=== PATIENT | male | born 1980 | race Caucasian/White ===

== ENCOUNTER 2025-02-14 11:49 | Outpatient (CLI) | payer MEDICAID, SELFPAY ==
--- NOTE | 2025-02-14 12:05 | CT_ITS ---
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 TECHNIQUE: Contiguous 5 mm axial imaging performed through the chest, abdomen and pelvis with IV contrast, oral contrast has not been provided. Coronal and sagittal reformats chest. Coronal and sagittal reformats through the abdomen and pelvis. All CT scans at [facility] use at least one of these dose optimization techniques: automated exposure control; mA and/or kV adjustment per patient size (includes targeted exams where dose is matched to clinical indication); or iterative reconstruction. CONTRAST: Omnipaque 350; 100 mL IV. DLP: 592.57 mGy.cm COMPARISON: None available. Chest CT: Lungs are clear. No evidence for metastatic disease to the lungs. No pericardial or pleural effusions. Normal size aorta and pulmonary artery. No mediastinal or hilar adenopathy. Extensive collateral circulation along the RIGHT lateral chest is probably due to prior surgery with interruption of the normal vascularity. Bilateral axillary lymph nodes do not appear enlarged. No chest wall mass is identified. No destructive bone process in the chest. No rib lesions. Abdomen CT: This study was performed without oral contrast. Normal appearance of the liver and spleen. Gallbladder is absent. No intrahepatic duct dilatation. Postsurgical changes noted involving the stomach and pancreatic head from prior Whipple procedure. The exact configuration is difficult to identify without oral contrast filling the GI tract. There is no obstruction of the GI tract. The remaining pancreatic body and tail are negative. No adrenal mass. Kidneys are normally enhancing. No renal obstruction. Minimal atherosclerosis aorta. Celiac axis origin from the aorta is not identified. No GI tract obstruction. No appendicitis. There is no colitis. No mesenteric implants. No ascites or adenopathy. Pelvic CT: No free fluid. Urinary bladder is partially distended. No adenopathy. Posterior lumbar fusion at L4-5 with interbody spacer. No lytic or blastic bone lesions. CT/CT chest abdpel w/*[id number] IMPRESSION: 1. No pulmonary metastatic nodules. No pneumonia. 2. No pathologic adenopathy in the chest, abdomen or pelvis. 3. Postsurgical changes in the abdomen consistent with history of Whipple proc edure. 4. No significantly enlarged mesenteric lymph nodes are identified. No mesente sherron implants identified. 5. No ascites. 6. No renal obstruction. 7. Prior cholecystectomy. 8. No subcutaneous skin nodules.
--- NOTE | 2025-02-14 12:05 | CT_ITS ---
WS: [id number] CT NECK WITH CONTRAST HISTORY: PERSONAL HX OF MALIGNANT MELANOMA OF SKIN TECHNIQUE: Contiguous 2 mm axial images are performed through the neck with intravenous contrast. Sagittal and coronal reformats are also submitted. All CT scans at [facility] use at least one of these dose optimization techniques: automated exposure control; mA and/or kV adjustment per patient size (includes targeted exams where dose is matched to clinical indication); or iterative reconstruction. CONTRAST: CONTRAST: Omnipaque 350; 100 mL IV. DLP: 169.78 mGy.cm COMPARISON: None available. Nasopharynx, oropharynx, hypopharynx and larynx are unremarkable. No soft tissue masses or abnormal enhancement. Torus tubarius and fossa of Rosenmuller and parapharyngeal fat are normal. There are bilateral cervical chain indeterminate lymph nodes. These lymph nodes are most significant at level 1 and level 2. Largest lymph node at level 2A measures 10 mm. This is a rounded lymph node with mild increased vascularity. Ovoid lymph node measuring 1.3 cm level 2A on the LEFT. There are additional smaller level 2 and level 3 lymph nodes. RIGHT supraclavicular lymph node 7 mm. LEFT level 1B lymph node 11 mm. Thyroid gland and salivary glands are normally enhancing with no masses. Visualized portions of the skull base demonstrate no abnormalities. Orbits and globes are within normal limits. No soft tissue masses. Moderate mucoperiosteal thickening throughout the maxillary sinuses. Heterogeneous attenuation from inspissated secretions. No air-fluid levels. Orbits and globes are negative. Mastoid air cells are clear. Lung apices are clear. CT/CT neck w con* [id number] IMPRESSION: 1. Indeterminate bilateral cervical chain lymph nodes. These lymph nodes are m easuring just slightly greater than normal and some of these lymph nodes demons trate enhancement and are rounded configuration. Consider PET/CT evaluation. Ne oplastic versus reactive adenopathy. 2. Moderate mucoperiosteal thickening in the maxillary sinuses.
[2025-02-14] MEDS: iohexol 350 mg/mL 500 mL Btl (per mL) IV ×2 (12:52→12:55)
== END 2025-02-14 11:50 | disposition home or self-care (01) ==
PROVIDERS: PCP Physician Assistant; Visit Provider Dermatology
DX: Z85.820 Personal history of malignant melanoma of skin (principal)
CPT/HCPCS: 70491; 71260; 74177; 83615

== ENCOUNTER 2025-03-04 11:36 | Outpatient (CLI) | payer MEDICAID, SELFPAY ==
--- NOTE | 2025-03-04 11:43 | PETR_ITS ---
PROCEDURE INFORMATION: Exam: PET/CT Skull Base to Mid-thigh Exam date and time: 03/04/2025 12:54 PM Age: 44 years old Clinical indication: Localized enlarged lymph nodes in the neck noted on CT neck on 02/14/2025; Distant HX melanoma 18 years ago. LABS AND CLINICAL REPORTS: Glucose: 107 mg/dl Treatment strategy for malignancy (PET staging): Initial Staging (PI) TECHNIQUE: Imaging protocol: Following at least four-hour fasting and following the injection of radiopharmaceutical, low dose CT images were obtained. Then, PET images were obtained. Attenuation corrected images were constructed using the CT scan. Fused images of PET and CT were reviewed. The standardized uptake values (SUV) reported below are maximum values within a region of interest, expressed in gm/ml. Exam includes orbital meatal line to mid-thigh. SUV normalization method: BodyWeight Radiopharmaceutical: 11.21 mCi F-18 FDG (Fluorodeoxyglucose), IV. Time of imaging post radiopharmaceutical administration: 51 minutes Injection site: R AC COMPARISON: CT neck w con* [id number] 02/14/2025 12:52 PM FINDINGS: Brain: On the nondedicated limited brain images there is no abnormal distribution of the radiotracer in the lopez and white matter. Paranasal sinuses: No abnormal uptake. Complete opacification of the left maxillary sinus, significant partial opacification of the right maxillary sinus, mucosal thickening in the left frontal and left sphenoid sinus with no air-fluid level suggestive of chronic sinusitis. Pharynx: Bilateral symmetric increased uptake in the lingual tonsil and in the sublingual space is suggestive of a benign physiologic finding. Larynx: Normal distribution of the radiotracer in laryngeal structures. Lungs, pleura and trachea: No abnormal uptake. No lung nodules or masses. No pleural effusion. Heart: Normal physiologic uptake. There is no cardiomegaly. No coronary artery calcification is visualized. There is no pericardial effusion. Mediastinal space: No abnormal uptake. Liver: Normal size without abnormal radiotracer uptake. Gallbladder and biliary ducts: No abnormal uptake. The gallbladder is absent surgically. Pancreas: Normal distribution of radiotracer. Signal changes after Whipple surgery. Spleen: Normal size without abnormal radiotracer uptake. Adrenal glands: No abnormal uptake. No nodules. Kidneys and ureters: Normal physiologic uptake. No hydronephrosis. Stomach and bowel: No abnormal uptake. Vasculature: No abnormal uptake. Lymph nodes: No abnormal uptake. No lymphadenopathy in the head, neck, chest, abdomen, pelvis, and extremities. Skeleton: No abnormal uptake in the visualized axial and appendicular skeleton. Stable changes after L4 posterior laminectomy and L4-L5 fusion with bilateral transpedicular internal fixation. Soft tissues: Subcentimeter cutaneous focus of increase uptake of 8.5 SUV anteriorly in the glans of the penis for correlation with physical exam. METRICS: Mediastinal blood pool maximal uptake is 2.4 SUV. Liver maximal uptake is 2.9 SUV. PET/PET skull to thigh SUBS [id number] IMPRESSION: Subcentimeter cutaneous focus of increased uptake anteriorly in the glans of the penis for correlation with physical exam. Otherwise negative exam with no abnormal radiotracer uptake concerning for malignancy. Specifically, there is no abnormal uptake in the lymph nodes in the neck. Stable changes after Whipple surgery.
== END 2025-03-04 11:37 | disposition home or self-care (01) ==
LOC: RAD 11:36
PROVIDERS: PCP Physician Assistant; Visit Provider Dermatology
DX: R91.1 Solitary pulmonary nodule (principal); J34.89 Other specified disorders of nose and nasal sinuses; Z90.49 Acquired absence of other specified parts of digestive tract
CPT/HCPCS: 78815; A9552

== ENCOUNTER 2025-03-18 12:02 | Outpatient (CLI) | payer MEDICAID, SELFPAY ==
[2025-03-18 13:06] LABS: HIV 1 & 2 Antigen Non-Reactive (Non-Reactiv)
== END 2025-03-18 12:03 | disposition home or self-care (01) ==
LOC: LAB 12:04
PROVIDERS: PCP Physician Assistant; Visit Provider Dermatology
DX: L08.9 Local infection of the skin and subcutaneous tissue, unspecified (principal)
CPT/HCPCS: 36415; 86592; 86695; 86696; 87806